=== PATIENT | male | born 1950 | race Caucasian/White ===

== ENCOUNTER 2020-08-28 09:20 | Emergency (ER) | payer MEDICARE, OTHER ==
[2020-08-28] MEDS ORDERED: Sodium Chloride 0.9% 10 ML Syringe FLUSH PRN (10:07)
[2020-08-28] MEDS ORDERED: Sodium Chloride 0.9% 1,000 ML IV SCH (10:15)
--- NOTE | 2020-08-28 11:10 | EDM.PDOC ---
ED HPI GENERAL MEDICAL PROBLEM - General Chief Complaint: Gastrointestinal Problem Stated Complaint: DIARRHEA/DEHYDRATED Time Seen by Provider: 08/28/20 10:00 Source of Information: Reports: Patient, RN Notes Reviewed - History of Present Illness INITIAL COMMENTS - FREE TEXT/NARRATIVE: 70 yr old male comes in with diarrhea for the past few days, chills, low grade fever, not feeling well. His did test positive for covid about a week ago. He has occasional mild cough. Does not feel short of breath. He feels that he is "dehydrated" - Related Data Allergies Allergy/AdvReac Type Severity Reaction Status Date / Time No Known Allergies Allergy Verified 08/28/20 09:50 Home Meds: Home Meds Axitinib [Inlyta] 5 mg PO BID 08/28/20 [History] Levothyroxine 75 mcg PO DAILY 08/28/20 [History] Losartan [Cozaar] 25 mg PO DAILY 08/28/20 [History] Pantoprazole [ProTONIX] 40 mg PO DAILY 08/28/20 [History] Umeclidinium Brm/Vilanterol Tr [Anoro Ellipta 62.5-25 MCG] 1 puff INH DAILY 08/28/20 [History] Past Medical History HEENT History: Reports: Impaired Vision Cardiovascular History: Reports: Hypertension Endocrine/Metabolic History: Reports: Hypothyroidism Oncologic (Cancer) History: Reports: Renal - Past Surgical History Male Surgical History: Reports: Nephrectomy, Other (See Below) Other Male Surgeries/Procedures: L kidney removed Social & Family History - Tobacco Use Tobacco Use Status *Q: Former Tobacco User Used Tobacco, but Quit: Yes Month/Year Tobacco Last Used: 2019 - Caffeine Use Caffeine Use: Reports: Coffee - Recreational Drug Use Recreational Drug Use: No ED ROS GENERAL - Review of Systems Review Of Systems: See Below Constitutional: Reports: Fever, Chills HEENT: Denies: Sinus Problem, Throat Pain Respiratory: Denies: Shortness of Breath Cardiovascular: Denies: Chest Pain GI/Abdominal: Reports: Diarrhea, Decreased Appetite. Denies: Nausea, Vomiting Musculoskeletal: Denies: Shoulder Pain, Arm Pain Skin: Reports: No Symptoms Neurological: Reports: No Symptoms ED EXAM, GENERAL - Physical Exam Exam: See Below General Appearance: Alert, No Apparent Distress Head: Atraumatic. No: Facial Swelling Neck: Supple Respiratory/Chest: No Respiratory Distress, Lungs Clear, Normal Breath Sounds. No: Rales, Rhonchi, Wheezing Cardiovascular: Tachycardia GI/Abdominal: Soft, Non-Tender. No: Guarding Back Exam: No: CVA Tenderness (L), CVA Tenderness (R) Extremities: Normal Inspection. No: Pedal Edema, Leg Pain, Redness Neurological: Alert, Oriented, No Motor/Sensory Deficits Skin Exam: Warm, Dry, Normal Color #1 Interpretation EKG Date: 08/28/20 Rhythm: NSR Mitchell: Normal P-Wave: Present QRS: Other (q waves inf. leads) ST-T: Normal Course - Vital Signs Last Recorded V/S: Last Vital Signs Temp 101.9 F H 08/28/20 12:09 Pulse 94 08/28/20 12:09 Resp 18 08/28/20 12:09 BP 124/89 08/28/20 12:09 Pulse Ox 93 L 08/28/20 12:09 - Orders/Labs/Meds Labs: Laboratory Tests 08/28/20 08/28/20 08/28/20 Range/Units 10:35 10:35 10:35 WBC 2.72 L (4.23-9.07) K/mm3 RBC 4.50 L (4.63-6.08) M/mm3 Hgb 13.9 (13.7-17.5) gm/dl Hct 41.6 (40.1-51.0) % MCV 92.4 H (79.0-92.2) fl MCH 30.9 (25.7-32.2) pg MCHC 33.4 (32.2-35.5) g/dl RDW Std Deviation 43.7 (35.1-43.9) fL Plt Count 82 L (163-337) K/mm3 MPV 11.3 (9.4-12.3) fl Neut % (Auto) 62.1 (34.0-67.9) % Lymph % (Auto) 27.2 (21.8-53.1) % [place] % (Auto) 9.9 (5.3-12.2) % Eos % (Auto) 0 L (0.8-7.0) Baso % (Auto) 0.4 (0.1-1.2) % Neut # (Auto) 1.69 L (1.78-5.38) K/mm3 Lymph # (Auto) 0.74 L (1.32-3.57) K/mm3 [place] # (Auto) 0.27 L (0.30-0.82) K/mm3 Eos # (Auto) 0.00 L (0.04-0.54) K/mm3 Baso # (Auto) 0.01 (0.01-0.08) K/mm3 Manual Slide Review Abnormal smear D-Dimer, Quantitative (0.19-0.50) mg/L Sodium 130 L (136-145) mEq/L Potassium 4.4 (3.5-5.1) mEq/L Chloride 97 L (98-107) mEq/L Carbon Dioxide 22 (21-32) mEq/L Anion Gap 15.4 H (5-15) BUN 24 H (7-18) mg/dL Creatinine 1.8 H (0.7-1.3) mg/dL Est Cr Clr Drug Dosing 36.72 mL/min Estimated GFR (MDRD) 38 (>60) mL/min BUN/Creatinine Ratio 13.3 L (14-18) Glucose 151 H (80-115) mg/dL Calcium 8.3 L (8.5-10.1) mg/dL Ferritin (26-388) ng/ml Total Bilirubin 1.1 H (0.2-1.0) mg/dL AST 39 H (15-37) U/L ALT 42 (16-63) U/L Alkaline Phosphatase 57 (46-116) U/L Lactate Dehydrogenase 269 H (85-227) U/L C-Reactive Protein 9.5 H* (<1.0) mg/dL Total Protein 7.7 (6.4-8.2) g/dl Albumin 3.2 L (3.4-5.0) g/dl Globulin 4.5 gm/dL Albumin/Globulin Ratio 0.7 L (1-2) 08/28/20 08/28/20 Range/Units 10:35 10:35 WBC (4.23-9.07) K/mm3 RBC (4.63-6.08) M/mm3 Hgb (13.7-17.5) gm/dl Hct (40.1-51.0) % MCV (79.0-92.2) fl MCH (25.7-32.2) pg MCHC (32.2-35.5) g/dl RDW Std Deviation (35.1-43.9) fL Plt Count (163-337) K/mm3 MPV (9.4-12.3) fl Neut % (Auto) (34.0-67.9) % Lymph % (Auto) (21.8-53.1) % [place] % (Auto) (5.3-12.2) % Eos % (Auto) (0.8-7.0) Baso % (Auto) (0.1-1.2) % Neut # (Auto) (1.78-5.38) K/mm3 Lymph # (Auto) (1.32-3.57) K/mm3 [place] # (Auto) (0.30-0.82) K/mm3 Eos # (Auto) (0.04-0.54) K/mm3 Baso # (Auto) (0.01-0.08) K/mm3 Manual Slide Review D-Dimer, Quantitative 0.68 H (0.19-0.50) mg/L Sodium (136-145) mEq/L Potassium (3.5-5.1) mEq/L Chloride (98-107) mEq/L Carbon Dioxide (21-32) mEq/L Anion Gap (5-15) BUN (7-18) mg/dL Creatinine (0.7-1.3) mg/dL Est Cr Clr Drug Dosing mL/min Estimated GFR (MDRD) (>60) mL/min BUN/Creatinine Ratio (14-18) Glucose (80-115) mg/dL Calcium (8.5-10.1) mg/dL Ferritin 3256 H (26-388) ng/ml Total Bilirubin (0.2-1.0) mg/dL AST (15-37) U/L ALT (16-63) U/L Alkaline Phosphatase (46-116) U/L Lactate Dehydrogenase (85-227) U/L C-Reactive Protein (<1.0) mg/dL Total Protein (6.4-8.2) g/dl Albumin (3.4-5.0) g/dl Globulin gm/dL Albumin/Globulin Ratio (1-2) Meds: Medications Discontinued Medications Generic Name Dose Route Start Last Admin Trade Name Freq PRN Reason Stop Dose Admin Sodium Chloride 1,000 mls @ 999 mls/hr 08/28/20 10:15 08/28/20 10:35 Normal Saline IV 999 mls/hr ONETIME SOYFA Administration Sodium Chloride 10 ml 08/28/20 10:07 08/28/20 10:35 Saline Flush FLUSH 10 ml ASDIRECTED PRN Administration Keep Vein Open - Re-Assessments/Exams Free Text/Narrative Re-Assessment/Exam: 08/29/20 17:06 CXR shows areas of slight interstitial prominence R upper mid lung and L lower, see Radiology report for details. O2 sats have been running 92 to 94 %. He almost certainly does have covid infection. Febrile at time of triage. He does feel up to going home. [facility] are on diversion. Discharge instr. as documented. Departure - Departure Time of Disposition: 11:47 Disposition: Home, Self-Care 01 Condition: Serious Clinical Impression: COVID-19 virus infection, Dehydration, Pneumonia - Discharge Information Instructions: COVID-19, Community-Acquired Pneumonia, Adult, [id number], Dehydration, Adult Referrals: PCP,None [Primary Care Provider] - Forms: ED Department Discharge Additional Instructions: Rest. You have several labs mildly elevated today and very small area of pneumonia on your CXR. Considering that your has had covid infection, that you have low grade fever in the ED and the above findings you have covid infection. Self Isolate for 14 days. Results of the covid screen sent to the [facility] lab will be called to you when available. Return to ED as needed for fluid or difficulty breathing or otherwise as needed. Sepsis Event Note (ED) - Evaluation Sepsis Screening Result: No Definite Risk
== END 2020-08-28 12:15 | disposition home or self-care (01) ==
LOC: JD.ED 09:20
DX: U07.1 COVID-19 (principal); J12.89 Other viral pneumonia; E86.0 Dehydration; I10 Essential (primary) hypertension; E03.9 Hypothyroidism, unspecified; Z79.899 Other long term (current) drug therapy; Z87.891 Personal history of nicotine dependence
CPT/HCPCS: 36415; 71045; 80053; 82728; 83615; 85025; 85379; 86140; 93005; 99284; J7030; U0002; 93010; 99283

== ENCOUNTER 2022-07-12 15:43 | Emergency (ER) | payer MEDICARE, OTHER ==
[2022-07-12 20:35] LABS: ESTIMATED GFR 40 mL/min (>60)
== END 2022-07-12 23:31 | disposition home or self-care (01) ==
LOC: JD.ED 15:43
DX: M84.421A Pathological fracture, right humerus, initial encounter for fracture (principal); I10 Essential (primary) hypertension; Z79.899 Other long term (current) drug therapy
CPT/HCPCS: 36415; 73030-26-RT; 73030-RT; 80053; 82550; 85025; 85379; 85610; 85730; 86140; 93971-26-RT; 93971-RT; 99283; 99284

== ENCOUNTER 2022-08-07 15:18 | Emergency (ER) | payer MEDICARE, OTHER ==
[2022-08-07] MEDS ORDERED: Iopamidol 755 Mg/ML 100 ML Bottle IVPUSH ONE (17:23)
[2022-08-07] MEDS ORDERED: Piperacillin/Tazobactam 4.5 GM in Sodium Chloride 0.9% 100 ML IV ONE (19:07)
[2022-08-07] MEDS ORDERED: Lactated Ringers 1,000 ML IV STA (19:09)
== END 2022-08-07 22:00 ==
LOC: JD.ED 15:18
DX: J18.9 Pneumonia, unspecified organism (principal); J44.9 Chronic obstructive pulmonary disease, unspecified; I10 Essential (primary) hypertension; Z79.899 Other long term (current) drug therapy; Z87.891 Personal history of nicotine dependence; Z20.822 Contact with and (suspected) exposure to COVID-19
CPT/HCPCS: 36415; 71275; 82803; 85610; 86140; 87040; 96361; 96365; 99285; J2543; J7120; Q9967; U0002

== ENCOUNTER 2023-04-06 22:56 | Emergency (ER) | payer MEDICARE, OTHER ==
[2023-04-07 00:38] LABS: HEMATOCRIT 25.5 % (40.1-51.0); HEMOGLOBIN 7.9 gm/dl (13.7-17.5); MEAN CORPUSCULAR HEMOGLOBIN 27.4 pg (25.7-32.2); MEAN CORPUSCULAR VOLUME 88.5 fl (79.0-92.2); MEAN PLATELET VOLUME 9.5 fl (9.4-12.3); PLATELET COUNT,PLT 236 K/mm3 (163-337); RED BLOOD CELL COUNT 2.88 M/mm3 (4.63-6.08); WHITE BLOOD CELL COUNT,WBC 10.27 K/mm3 (4.23-9.07)
[2023-04-07 00:45] LABS: CORONAVIRUS COVID-19 NAA NEGATIVE (NEGATIVE); INFLUENZA A NAA NEGATIVE (NEGATIVE)
[2023-04-07 01:01] LABS: BAND PERCENT MAN 2 % (0-10); BASOPHILS PERCENT MAN 0 (0.2-1.2); EOSINOPHILS PERCENT MAN 1 % (0.8-7.0); LYMPHOCYTES % ATYPICAL MANUAL 0 %; LYMPHOCYTES PERCENT MAN 6 % (20-40); METAMYELOCYTE PERCENT MAN 1; MONOCYTES PERCENT MAN 5 % (2-10); MYELOCYTE PERCENT MAN 1
[2023-04-07 01:04] LABS: A/G RATIO 0.4 (1-2); ALBUMIN 2.1 g/dl (3.4-5.0); ANION GAP 15.5 (5-15); BILIRUBIN TOTAL 0.5 mg/dL (0.2-1.0); BUN/CREATININE RATIO 24.4 (14-18); CALCIUM 7.9 mg/dL (8.5-10.1); CREATININE 1.8 mg/dL (0.7-1.3); EST CRCL DRUG DOSING (CG) 34.3 mL/min; POTASSIUM,K 4.5 mEq/L (3.5-5.1); PROTEIN TOTAL,TP 6.9 g/dl (6.4-8.2)
[2023-04-07 01:05] LABS: ANISOCYTOSIS 3+ MARKED; HYPOCHROMASIA 1+ SLIGHT; POLYCHROMASIA 2+ MODERATE
[2023-04-07 01:06] LABS: PLATELET COUNT ESTIMATE ADEQUATE
[2023-04-07 01:15] LABS: LACTIC ACID 2.1 mmol/L (0.4-2.0)
[2023-04-07] MEDS ORDERED: Sodium Chloride 0.9% 1,000 ML IV SCH (01:15)
[2023-04-07] MEDS ORDERED: Iopamidol 755 Mg/ML 100 ML Bottle IVPUSH ONE (01:18)
[2023-04-07] MEDS: Sodium Chloride 0.9% 10 ML Syringe FLUSH PRN ×2 (01:27→01:59)
[2023-04-07] MEDS ORDERED: Sodium Chloride 0.9% 100 ML IV SCH (01:30)
[2023-04-07 02:22] LABS: LACTIC ACID 1.7 mmol/L (0.4-2.0)
== END 2023-04-07 03:46 | disposition home or self-care (01) ==
LOC: JD.ED 22:56
DX: J69.0 Pneumonitis due to inhalation of food and vomit (principal); C79.00 Secondary malignant neoplasm of unspecified kidney and renal pelvis; J44.9 Chronic obstructive pulmonary disease, unspecified; E03.9 Hypothyroidism, unspecified; Z20.822 Contact with and (suspected) exposure to COVID-19; Z79.899 Other long term (current) drug therapy
CPT/HCPCS: 0240U; 36415; 71045; 71275; 80053; 83605; 83880; 84484; 85007; 85027; 85379; 86140; 87040; 93005; 99285; J3490; Q9967; 93010

== ENCOUNTER 2023-05-05 20:30 | Emergency (ER) | payer MEDICARE, OTHER ==
[2023-05-05] MEDS ORDERED: Lactated Ringers 500 ML IV ONE (21:11)
[2023-05-05] MEDS ORDERED: Lactated Ringers 1,000 ML IV SCH ×2 (21:15→23:45)
[2023-05-05 22:07] LABS: BASOPHILS ABSOLUTE AUTO 0.03 K/mm3 (0.01-0.08); BASOPHILS PERCENT AUTO 0.2 % (0.1-1.2); EOSINOPHILS ABSOLUTE AUTO 0.05 K/mm3 (0.04-0.54); EOSINOPHILS PERCENT AUTO 0.4 (0.8-7.0); HEMOGLOBIN 8.2 gm/dl (13.7-17.5); IMMATURE GRAN PERCENT AUTO 0.8 % (<=1.0); LYMPHOCYTES ABSOLUTE AUTO 0.84 K/mm3 (1.32-3.57); LYMPHOCYTES PERCENT AUTO 6.3 % (21.8-53.1); MEAN CORPUSCULAR HEMOGLOBIN 27.3 pg (25.7-32.2); MEAN CORPUSCULAR HGB CONC 30.4 g/dl (32.2-35.5); MEAN PLATELET VOLUME 9.6 fl (9.4-12.3); MONOCYTES ABSOLUTE AUTO 1.11 K/mm3 (0.30-0.82); MONOCYTES PERCENT AUTO 8.4 % (5.3-12.2); NEUTROPHILS ABSOLUTE AUTO 11.11 K/mm3 (1.78-5.38); NEUTROPHILS PERCENT AUTO 83.9 % (34.0-67.9); PLATELET COUNT,PLT 348 K/mm3 (163-337); WHITE BLOOD CELL COUNT,WBC 13.24 K/mm3 (4.23-9.07)
[2023-05-05 22:31] LABS: A/G RATIO 0.4 (1-2); ALBUMIN 2.1 g/dl (3.4-5.0); ANION GAP 18.9 (5-15); BILIRUBIN TOTAL 0.6 mg/dL (0.2-1.0); CALCIUM 8.6 mg/dL (8.5-10.1); CREATININE 2.2 mg/dL (0.7-1.3); EST CRCL DRUG DOSING (CG) 25.06 mL/min; POTASSIUM,K 4.9 mEq/L (3.5-5.1); PROTEIN TOTAL,TP 7.3 g/dl (6.4-8.2)
[2023-05-05 22:39] LABS: LACTIC ACID 2.7 mmol/L (0.4-2.0)
[2023-05-05] MEDS ORDERED: Lidocaine 2% 11 ML Jelly Filled Syringe ONE (22:41)
[2023-05-05] MEDS ORDERED: Morphine 2 MG/ML SYRINGE IVPUSH ONE ×2 (23:10→23:17)
[2023-05-05] MEDS ORDERED: Sodium Chloride 0.9% 1,000 ML IV SCH (23:45)
[2023-05-05] MEDS ORDERED: cefTRIAXone 1 GM in Sodium Chloride 0.9% 100 ML IV ONE (23:51)
== END 2023-05-06 00:55 ==
LOC: JD.ED 20:30
DX: N13.9 Obstructive and reflux uropathy, unspecified (principal); A41.9 Sepsis, unspecified organism; E03.9 Hypothyroidism, unspecified; J44.9 Chronic obstructive pulmonary disease, unspecified; Z87.891 Personal history of nicotine dependence; Z86.16 Personal history of COVID-19; Z79.899 Other long term (current) drug therapy
CPT/HCPCS: 36415; 80053; 83605; 85025; 87040; 96361; 96365; 96375; 99285; J0696; J2270; J3490; J7030; J7120